=== PATIENT | female | born 1960 | race African-American/Black ===

== ENCOUNTER 2020-01-24 14:55 | Emergency (ER) | payer BC, OTHER ==
[~2020-01-24] VITALS: Ht 172.7 cm; Wt 107.5 kg
[2020-01-24 15:14] VITALS: Ht 172.7 cm; Wt 107.5 kg
[2020-01-24 18:46] VITALS: BP 104/43
== END 2020-01-24 18:46 | disposition home or self-care (01) ==
LOC: ED 14:55
DX: S42.201A Unspecified fracture of upper end of right humerus, initial encounter for closed fracture (principal); I10 Essential (primary) hypertension; Z88.0 Allergy status to penicillin; W01.0XXA Fall on same level from slipping, tripping and stumbling without subsequent striking against object, initial encounter; Y93.89 Activity, other specified; Y92.89 Other specified places as the place of occurrence of the external cause; Y99.8 Other external cause status
CPT/HCPCS: J2270; Q0092; Q0162